=== PATIENT | male | born 2000 | race Native Hawaiian/Other Pacific Islander ===

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

== ENCOUNTER 2019-01-26 20:47 | Emergency (ER) | payer OTHER ==
[~2019-01-26] VITALS: Ht 175.3 cm; Wt 93.4 kg
[~2019-01-26 20:47] MED LIST: CONCERTA36 MG PO
[2019-01-26 23:16] VITALS: BP 139/88; TEMP 98.6
== END 2019-01-26 23:16 | disposition home or self-care (01) ==
LOC: ED 20:47
PROC: 08C9XZZ Extirpation of Matter from Left Cornea, External Approach (ICD-10-PCS; principal; 2019-01-26)
DX: T15.02XA Foreign body in cornea, left eye, initial encounter (principal)
CPT/HCPCS: 99283